=== PATIENT | female | born 1950 | race Caucasian/White ===

== ENCOUNTER → 2020-06-21 | Day surgery (SDC) | payer MEDICARE, OTHER ==
[2020-06-21 10:26] LABS: HCT 45.5 % (37.0-47.0); HGB 14.5 g/dl (12.5-16.0); MCH 27.3 pg (25.0-31.0); MCHC 31.9 g/dL (32.0-36.0); MCV 85.7 fL (78.0-100.0); RBC 5.31 M/uL (4.20-5.40); RDW 16.3 % (11.5-14.0); WBC 4.5 K/uL (4.0-10.5)
[2020-06-21 10:43] LABS: ALBUMIN 3.8 g/dL (3.4-5.0); BILIRUBIN - TOTAL 1.5 mg/dL (0.2-1.0); BUN/CREAT RATIO (CALC) 26.9 RATIO; CREATININE 0.78 mg/dL (0.51-0.95); GLOBULIN (CALCULATION) 3.7 g/dL; POTASSIUM 3.9 mmol/L (3.5-5.1); TOTAL PROTEIN 7.5 g/dL (6.4-8.2)
== END | disposition home or self-care (01) ==
LOC: FAS 08:30
PROVIDERS: Surgery
DX: Z12.11 Encounter for screening for malignant neoplasm of colon (principal); K58.9 Irritable bowel syndrome, unspecified; M19.90 Unspecified osteoarthritis, unspecified site; Z80.0 Family history of malignant neoplasm of digestive organs
CPT/HCPCS: 36415; 80053; J1610; J2704; J7120